=== PATIENT | female | born 1965 | race Two or more races ===

== ENCOUNTER 2020-11-04 00:18 | Emergency (ER) | payer SELFPAY ==
[~2020-11-04] VITALS: Ht 175.3 cm; Wt 59.0 kg
[2020-11-04 05:00] VITALS: BP 125/67
[2020-11-04] MEDS ORDERED: ALBUTEROL SULF 2.5 MG/0.5ML(0.5%) NEB SOLN NEB ONE (06:00)
[2020-11-04] MEDS ORDERED: IPRATROPIUM BROM 0.5 MG/2.5ML INH SOL NEB ONE (06:00)
[2020-11-04] MEDS ORDERED: ONDANSETRON HCL 4 MG/2 ML VIAL IV ONE (06:30)
[2020-11-04] MEDS ORDERED: MORPHINE SULFATE 4 MG/ML SYR/VIAL IV ONE (06:30)
== END 2020-11-04 07:20 | disposition home or self-care (01) ==
LOC: EDBD 00:18 → ER 00:18
DX: T78.40XA Allergy, unspecified, initial encounter (principal); J45.909 Unspecified asthma, uncomplicated; Y92.89 Other specified places as the place of occurrence of the external cause
CPT/HCPCS: 94640; 96374; 96375; 99285; J2270; J2405; J7644